=== PATIENT | female | born 1945 | race Caucasian/White ===

== ENCOUNTER 2018-03-05 15:47 | Emergency (ER) | payer OTHER ==
[~2018-03-05] VITALS: Ht 154.9 cm; Wt 72.6 kg
[~2018-03-05 15:47] MED LIST: LEVO0.0214 PO
[2018-03-05 15:59] VITALS: BP 124/84
[2018-03-05] MEDS ORDERED: CEPHALEXIN 500 MG CAP PO ONE (19:40)
[2018-03-05] MEDS ORDERED: ACETAMINOPHEN EXTRA STRENGTH 500 MG TAB PO ONE (19:40)
[2018-03-05 20:08] VITALS: BP 132/70
== END 2018-03-05 20:08 | disposition home or self-care (01) ==
LOC: MED 15:47
DX: L03.113 Cellulitis of right upper limb (principal); L03.012 Cellulitis of left finger; E07.9 Disorder of thyroid, unspecified; Z79.899 Other long term (current) drug therapy; Z88.2 Allergy status to sulfonamides; W57.XXXA Bitten or stung by nonvenomous insect and other nonvenomous arthropods, initial encounter; Y93.89 Activity, other specified; Y92.89 Other specified places as the place of occurrence of the external cause; Y99.8 Other external cause status
CPT/HCPCS: 99283

== ENCOUNTER 2019-04-30 13:10 | Emergency (ER) | payer OTHER ==
[~2019-04-30] VITALS: Ht 160 cm; Wt 68.0 kg
[2019-04-30 13:21] VITALS: BP 128/64
[2019-04-30] MEDS: MECLIZINE 25 MG TAB PO ONE (13:40)
[2019-04-30 14:49] LABS: BASOPHILS # (AUTO) 0.1 K/uL (0.00-0.22); BASOPHILS % (AUTO) 0.8 % (0.0-2.0); EOSINOPHILS # (AUTO) 0.1 K/uL (0-0.4); EOSINOPHILS % (AUTO) 2.2 % (0.0-4.0); HEMATOCRIT 40.8 % (36-48); HEMOGLOBIN 13.4 g/dL (12.0-16.0); LYMPHOCYTES # (AUTO) 1.7 K/uL (2.5-16.5); LYMPHOCYTES % (AUTO) 26.3 % (20.5-51.1); MEAN CORPUSCULAR HEMOGLOBIN 30 pg (27-31); MEAN CORPUSCULAR HGB CONC 33 g/dL (33-37); MEAN CORPUSCULAR VOLUME 90.1 fL (80-94); MONOCYTES # (AUTO) 0.5 K/uL (0.8-1.0); MONOCYTES % (AUTO) 8.4 % (1.7-9.3); NEUTROPHILS % (AUTO) 62.3 % (42.2-75.2); PLATELET COUNT (AUTO) 312 K/uL (140-450); RED BLOOD CELL COUNT(AUTO) 4.53 MIL/uL (4.20-5.40); RED CELL DISTRIBUTION WIDTH 14.4 % (11.6-13.7); WHITE BLOOD COUNT (AUTO) 6.4 K/uL (4.8-10.8)
[2019-04-30 15:04] LABS: APPEARANCE,URINE CLEAR (CLEAR); BILIRUBIN,URINE NEGATIVE (NEGATIVE); BLOOD, URINE 1+ (NEGATIVE); COLOR,URINE YELLOW (YELLOW); LEUKOCYTE ESTERASE ,URINE TRACE (NEGATIVE); NITRITE, URINE POSITIVE (NEGATIVE); UGLUCOSE NEGATIVE (NEGATIVE)
[2019-04-30 15:10] LABS: ALBUMIN 3.5 g/dL (3.4-5.0); ANION GAP 8.4 (8-16); ASPARTATE AMINOTRANSFERASE 14 U/L (15-37); CARBON DIOXIDE 30.6 mmol/L (21-32); CHLORIDE 107 mmol/L (98-107); CREATININE 0.9 mg/dL (0.6-1.3); GLUCOSE 86 mg/dL (74-106); SODIUM SERUM 142 mmol/L (136-145); TOTAL BILIRUBIN 0.3 mg/dL (0.0-1.0); UREA NITROGEN, BLOOD 16 mg/dL (7-18)
[2019-04-30 15:43] LABS: WBC,URINE 16-25 (MOD) /HPF (0-5)
[2019-04-30 15:54] VITALS: BP 100/52
== END 2019-04-30 15:54 | disposition home or self-care (01) ==
LOC: MED 13:41
DX: N39.0 Urinary tract infection, site not specified (principal); R42 Dizziness and giddiness; E03.9 Hypothyroidism, unspecified; Z88.2 Allergy status to sulfonamides; Z79.899 Other long term (current) drug therapy
CPT/HCPCS: 36415; 70450; 80053; 81001; 82948; 85025; 87086; 87186; 99284; J8597

== ENCOUNTER 2019-05-10 19:23 | Emergency (ER) | payer OTHER ==
[~2019-05-10] VITALS: Ht 157.5 cm; Wt 70.3 kg
[2019-05-10 19:30] VITALS: BP 116/76
--- NOTE | 2019-05-10 19:48 | NUR ---
PT CAME TO ER CAME C/O OF RIGHT EYE PAIN. PER PT SHE WAS CLEANING AND POKED HER EYE WITH A DRYER BRUSH THE DOG JUMPED ON HER. PT DOES HAVE REDNESS TO SCLERA, WITHOUT TEARING OR DRAINAGE NOTED. PAIN LEVEL 6/10, THROBBING AND ACHING. PT DOES STATE SHE HAS MINOR BLURRED VISION. DENIES SENSITIVITY TO LIGHT. ALLERGIES: SULFA. MED HX: HYPOTHRYOIDISM. SAFETY MEASURES IN PLACE. WAITING FOR ERMD TO EVALUATE.
[2019-05-10] MEDS ORDERED: FLUORESCEIN OPTH STRIP 0.6 MG OP ONE (19:50)
--- NOTE | 2019-05-10 19:53 | NUR ---
PT AMBULATED TO BED 12.
[2019-05-10] MEDS ORDERED: TETRACAINE HCL/PF 0.5% OPTH 4 ML BTL OP ONE (20:10)
--- NOTE | 2019-05-10 20:10 | NUR ---
Dr. Welsh examining patient.
[2019-05-10] MEDS ORDERED: TETRACAINE HCL/PF 0.5% OPTH 4 ML BTL ONE (20:21)
--- NOTE | 2019-05-10 20:22 | NUR ---
Patient discharged with v/s stable. Written and verbal after care instructions given and explained. Pt instructed to keep eye area clean and dry. Patient alert, oriented and verbalized understanding of instructions. Ambulatory with steady gait. All questions addressed prior to discharge. ID band removed. Patient advised to follow up with PMD. Rx of erythromycin, motrin, and norco was given. Patient educated on indication of medication including possible reaction and side effects. Opportunity to ask questions provided and answered.
[2019-05-10 20:23] VITALS: BP 116/76
== END 2019-05-10 20:22 | disposition home or self-care (01) ==
LOC: MED 19:23
DX: S05.01XA Injury of conjunctiva and corneal abrasion without foreign body, right eye, initial encounter (principal); H11.31 Conjunctival hemorrhage, right eye; E03.9 Hypothyroidism, unspecified; Z79.899 Other long term (current) drug therapy; Z88.2 Allergy status to sulfonamides; W22.8XXA Striking against or struck by other objects, initial encounter; Y92.89 Other specified places as the place of occurrence of the external cause; Y93.89 Activity, other specified; Y99.8 Other external cause status
CPT/HCPCS: 99283

== ENCOUNTER 2019-10-24 06:36 | Emergency (ER) | payer OTHER ==
[~2019-10-24] VITALS: Ht 157.5 cm; Wt 72.6 kg
--- NOTE | 2019-10-24 06:36 | NUR ---
BIBA TO ER BED 3
--- NOTE | 2019-10-24 06:42 | NUR ---
blister fluid filled.
--- NOTE | 2019-10-24 06:42 | NUR ---
Note undone in EDM - 10/24/19 at 0700 by NIC BIBA C/O ALLERGIC RX. PARAMEDICS GAVE IV BENADRYL 25MG THROUGH IV. PT HAD A ROOT CANAL ON THURSDAY AND WAS PRESCRIBED AZITHROMYCIN FOR POSS INFECTION. PT STARTED HAVING ALLERGIC REACTION SO WAS ADVISED BY HER DOCTOR TO STOP TAKING MEDS. LAST DOSE WAS THURSDAY. PT HAD LT FACIAL SWELLING, HIVES, NUMBNESS TO TOUCH, AIRWAY PATENT AND CLEAR. VSS. NO SOB. SPEECH CLEAR. NO RESP DISTRESS NOTED. LUNG SOUNDS CLEAR ALL THROUGHOUT. A&O X4. RATES PAIN 10/10 AND DESCRIBES IT NUMBNESS AND ACHING. ALLERGIES: SULFA DRUGS. PMH: NONE.
[2019-10-24 06:46] VITALS: BP 144/70
--- NOTE | 2019-10-24 07:11 | NUR ---
Pt report given to [facility] charge nurse. Transfer of care at this time.
[2019-10-24 08:00] VITALS: BP 130/67
--- NOTE | 2019-10-24 08:35 | NUR ---
Patient discharged with v/s stable. Written and verbal after care instructions given and explained. Patient alert, oriented and verbalized understanding of instructions. Ambulatory with steady gait. All questions addressed prior to discharge. ID band removed. Patient advised to follow up with PMD. Rx of prednisone,acyclovir,norco given. Patient educated on indication of medication including possible reaction and side effects. Opportunity to ask questions provided and answered.
== END 2019-10-24 08:00 | disposition home or self-care (01) ==
LOC: MED 06:36
DX: B02.9 Zoster without complications (principal); E03.9 Hypothyroidism, unspecified; Z79.899 Other long term (current) drug therapy; Z88.2 Allergy status to sulfonamides
CPT/HCPCS: 99283

== ENCOUNTER 2020-03-02 12:06 | Emergency (ER) | payer OTHER ==
[~2020-03-02] VITALS: Ht 154.9 cm; Wt 75.3 kg
[2020-03-02 12:22] VITALS: BP 122/64
--- NOTE | 2020-03-02 12:32 | NUR ---
C/O SHARP PAIN 8/10 BETWEEN SHOULDER BLADES X 4 DAYS. DENIES INJURY. PT DENIES CP OR SOB. VS STABLE . PT ALERT AND AWAKE. AMBULATORY WITH STEADY GAIT. STATES OTC PAIN MEDICATIONS WITH SOME RELIEF. PMH- SHINGLES HISTORY
--- NOTE | 2020-03-02 12:44 | NUR ---
DR RENTERIA AT BEDSIDE
[2020-03-02 13:03] LABS: BASOPHILS % (AUTO) 0.7 % (0.0-2.0); EOSINOPHILS # (AUTO) 0.3 K/uL (0-0.4); EOSINOPHILS % (AUTO) 5.1 % (0.0-4.0); HEMATOCRIT 39.7 % (36-48); HEMOGLOBIN 13.2 g/dL (12.0-16.0); LYMPHOCYTES # (AUTO) 2.1 K/uL (2.5-16.5); LYMPHOCYTES % (AUTO) 31.7 % (20.5-51.1); MEAN CORPUSCULAR HEMOGLOBIN 30 pg (27-31); MEAN CORPUSCULAR HGB CONC 33 g/dL (33-37); MEAN CORPUSCULAR VOLUME 89.6 fL (80-94); MONOCYTES # (AUTO) 0.5 K/uL (0.8-1.0); MONOCYTES % (AUTO) 7.8 % (1.7-9.3); NEUTROPHILS # (AUTO) 3.7 K/uL (1.8-7.7); NEUTROPHILS % (AUTO) 54.7 % (42.2-75.2); PLATELET COUNT (AUTO) 288 K/uL (140-450); RED BLOOD CELL COUNT(AUTO) 4.43 MIL/uL (4.20-5.40); RED CELL DISTRIBUTION WIDTH 13.2 % (11.6-13.7); WHITE BLOOD COUNT (AUTO) 6.8 K/uL (4.8-10.8)
[2020-03-02 13:22] LABS: ALBUMIN 3.5 g/dL (3.4-5.0); ANION GAP 10.5 (8-16); ASPARTATE AMINOTRANSFERASE 16 U/L (15-37); CARBON DIOXIDE 28.9 mmol/L (21-32); CHLORIDE 106 mmol/L (98-107); CREATININE 0.9 mg/dL (0.6-1.3); GLUCOSE 89 mg/dL (74-106); POTASSIUM 4.4 mmol/L (3.5-5.1); SODIUM SERUM 141 mmol/L (136-145); TOTAL BILIRUBIN 0.3 mg/dL (0.0-1.0); UREA NITROGEN, BLOOD 19 mg/dL (7-18)
[2020-03-02 14:07] VITALS: BP 122/64
--- NOTE | 2020-03-02 14:09 | NUR ---
Patient discharged with v/s stable. Written and verbal after care instructions given and explained. Patient verbalized understanding. Ambulatory with steady gait. All questions addressed prior to discharge. Advised to follow up with PMD.
== END 2020-03-02 14:09 | disposition home or self-care (01) ==
LOC: MED 12:06
DX: M54.9 Dorsalgia, unspecified (principal); E03.9 Hypothyroidism, unspecified; Z88.2 Allergy status to sulfonamides; Z79.899 Other long term (current) drug therapy
CPT/HCPCS: 36415; 71045; 72072; 80053; 84484; 85025; 93005; 99284; 99285

== ENCOUNTER 2021-12-13 15:55 | Emergency (ER) | payer OTHER ==
[~2021-12-13] VITALS: Ht 154.9 cm; Wt 77.1 kg
[2021-12-13 15:56] VITALS: BP 167/128
--- NOTE | 2021-12-13 16:06 | NUR ---
Patient ambulated to bed 11 with steady/even gait.
--- NOTE | 2021-12-13 16:15 | NUR ---
EMT at bedside for EKG
--- NOTE | 2021-12-13 16:20 | NUR ---
76 y/o F BIB self from home c/o palpitations, chest heaviness, lightheadedness, difficulty breathing, bilateral ear pain x 3 hours. Patient A&Ox4, ambulatory, states she was doing yard work and house chores before onset of symptoms began. Pt reports resting after onset and states symptoms 5-10 minutes self-resolved after 5-10 minutes. Patient reported left sided chest pressure, sharp/intermittent, non-radiating. Denies pain. Denies abdominal pain, dysuria, fever, chills, headache. Denies numbness or tingling sensation. Patient denies any symptoms at this time. No meds prior to arrival. Bed locked in lowest position, side rails x 1. pmh: hypothyroidism meds: levothyroxine NKDA Sx: varicose vein sx
--- NOTE | 2021-12-13 16:23 | NUR ---
Dr. Pierce is evaluating patient at bedside
[2021-12-13] MEDS ORDERED: ACETAMINOPHEN EXTRA STRENGTH 500 MG TAB PO ONE (16:35)
[2021-12-13] MEDS ORDERED: MECLIZINE 25 MG TAB PO ONE (16:35)
--- NOTE | 2021-12-13 16:50 | NUR ---
Patient transported to CT by wheelchair.
--- NOTE | 2021-12-13 17:04 | NUR ---
Patient returned from CT by wheelchair.
--- NOTE | 2021-12-13 17:09 | NUR ---
Lab at bedside
[2021-12-13 17:17] LABS: BASOPHILS # (AUTO) 0.1 K/uL (0.00-0.22); EOSINOPHILS # (AUTO) 0.2 K/uL (0-0.4); EOSINOPHILS % (AUTO) 2.4 % (0.0-4.0); HEMATOCRIT 38.5 % (36-48); HEMOGLOBIN 12.8 g/dL (12.0-16.0); LYMPHOCYTES # (AUTO) 1.9 K/uL (2.5-16.5); LYMPHOCYTES % (AUTO) 25.8 % (20.5-51.1); MEAN CORPUSCULAR HEMOGLOBIN 29 pg (27-31); MEAN CORPUSCULAR HGB CONC 33 g/dL (33-37); MEAN CORPUSCULAR VOLUME 88.3 fL (80-94); MONOCYTES # (AUTO) 0.6 K/uL (0.8-1.0); MONOCYTES % (AUTO) 8.3 % (1.7-9.3); NEUTROPHILS # (AUTO) 4.5 K/uL (1.8-7.7); NEUTROPHILS % (AUTO) 62.5 % (42.2-75.2); PLATELET COUNT (AUTO) 326 K/uL (140-450); RED BLOOD CELL COUNT(AUTO) 4.36 MIL/uL (4.20-5.40); WHITE BLOOD COUNT (AUTO) 7.3 K/uL (4.8-10.8)
--- NOTE | 2021-12-13 17:40 | NUR ---
Patient denies headache, reports 0/10 and states no longer dizzy.
[2021-12-13 17:50] LABS: ALBUMIN 3.4 g/dL (3.4-5.0); ANION GAP 14.3 (8-16); ASPARTATE AMINOTRANSFERASE 19 U/L (15-37); CARBON DIOXIDE 26.3 mmol/L (21-32); CHLORIDE 107 mmol/L (98-107); GLUCOSE 83 mg/dL (74-106); MAGNESIUM 2.1 mg/dL (1.8-2.4); POTASSIUM 3.6 mmol/L (3.5-5.1); SODIUM SERUM 144 mmol/L (136-145); TOTAL BILIRUBIN 0.2 mg/dL (0.0-1.0); UREA NITROGEN, BLOOD 16 mg/dL (7-18)
--- NOTE | 2021-12-13 17:54 | NUR ---
Patient disconnected from sound effects manager and ambulated 25 steps without dizziness, weakness, fatigue. Dr. Pierce made aware.
[2021-12-13] MEDS ORDERED: MECL-303 PO (18:21)
[2021-12-13 18:35] VITALS: BP 135/60
--- NOTE | 2021-12-13 18:35 | NUR ---
Patient discharged with v/s stable. Written and verbal after care instructions given and explained for Near-Syncope, Palpitations. Patient alert, oriented and verbalized understanding of instructions. Ambulatory with steady gait. All questions addressed prior to discharge. ID band removed. Patient advised to follow up with PMD. Rx of Meclizine given. Patient educated on indication of medication including possible reaction and side effects. Opportunity to ask questions provided and answered.
== END 2021-12-13 18:35 | disposition home or self-care (01) ==
LOC: MED 15:55
DX: R55 Syncope and collapse (principal); R42 Dizziness and giddiness; R00.2 Palpitations; R51.9 Headache, unspecified; H92.03 Otalgia, bilateral
CPT/HCPCS: 36415; 70450; 71045; 80053; 83735; 84484; 85025; 93005; 99285; J8597; Q0092

== ENCOUNTER 2024-07-18 12:37 | Emergency (ER) | payer OTHER ==
[~2024-07-18] VITALS: Ht 152.4 cm; Wt 75.1 kg
[~2024-07-18 12:37] MED LIST changes: +MECL-303 PO
[2024-07-18 12:45] VITALS: BP 135/57; PULSE 77; RESP 16; TEMP 97.8; O2SAT 98
[2024-07-18] MEDS: DEXAMETHASONE 10 MG/ML VIAL PO ONE (14:26)
[2024-07-18 14:30] VITALS: BP 135/57; PULSE 77; RESP 16; TEMP 97.8; O2SAT 98
== END 2024-07-18 14:30 | disposition home or self-care (01) ==
LOC: MED 12:37
DX: J40 Bronchitis, not specified as acute or chronic (principal); R03.0 Elevated blood-pressure reading, without diagnosis of hypertension; E03.9 Hypothyroidism, unspecified; E78.5 Hyperlipidemia, unspecified; Z79.899 Other long term (current) drug therapy; Z88.2 Allergy status to sulfonamides
CPT/HCPCS: 71046; 99283; J1100